=== PATIENT | male | born 1980 | race Hispanic/Latino ===

== ENCOUNTER → 2023-10-07 | Outpatient (CLI) | payer OTHER, BC ==
[~2023-10-07] MED LIST: IOHEXOL 350 MG/ML 100ML INFUS..BTL IV ONE; METOPROLOL TARTRATE 1 MG/ML 5ML VIAL IV ONE
== END | disposition home or self-care (01) ==
LOC: RAH 09:49
PROVIDERS: ATTEND Student in an Organized Health Care Education/Training Program
DX: R07.89 Other chest pain (principal); R53.83 Other fatigue
CPT/HCPCS: 75574; J3490; Q9967